=== PATIENT | male | born 1990 | race African-American/Black ===

== ENCOUNTER → 2016-06-29 | Outpatient (CLI) | payer OTHER ==
--- NOTE | 2016-06-29 16:31 | REP ---
Clinical: Arthralgia. Technique: AP, lateral, bilateral oblique and sunrise views of the right knee. Findings: Whitharral view suggests subtle lateral patellofemoral joint space narrowing and subchondral sclerosis. The remainder of the examination appears normal for age. Impression: Cannot exclude mild patellofemoral joint space narrowing. Signed by Carl Houser MD 06/29/2016 04:22 P
== END ==
LOC: M WUC 15:51
PROVIDERS: ATTEND Physician Assistant Medical
DX: M25.561 Pain in right knee (principal)

== ENCOUNTER → 2016-07-15 | Outpatient (CLI) | payer OTHER ==
--- NOTE | 2016-07-15 16:48 | REP ---
MRI RIGHT KNEE: TECHNIQUE: Axial proton density fat saturation, sagittal proton density T2 STIR, water excitation, coronal proton density, proton density fat saturation. The menisci are intact with no evidence of a meniscal tear. The cruciate and collateral ligaments are intact. The extensor mechanism is intact. There is minor global chondromalacia. There is no bone marrow edema or occult fracture. A tiny 6 mm hyperintense lesion on T2, hypointense on T1, is seen in the distal femur centrally, 6 mm in diameter. This probably represents a small enchondroma or other benign lesion. There is a small joint effusion. There is no evidence of a popliteal cyst. IMPRESSION: No meniscal tear. Cruciate and collateral ligaments are intact. Minor global chondromalacia with a small joint effusion. Tiny benign lesion in the distal femur 6 mm in diameter, probably representing an enchondroma. Signed by Zain Gaffney MD 07/15/2016 04:56 P
== END ==
LOC: M RAD 14:42
PROVIDERS: ATTEND Physician Assistant Medical
DX: M25.561 Pain in right knee (principal)

== ENCOUNTER → 2017-05-25 | Outpatient (CLI) | payer OTHER | LOC: M WUC 14:01 | DX: S62.346A Nondisplaced fracture of base of fifth metacarpal bone, right hand, initial encounter for closed fracture (principal); Y92.89 Other specified places as the place of occurrence of the external cause; Y93.89 Activity, other specified; Y99.8 Other external cause status; X58.XXXA Exposure to other specified factors, initial encounter | CPT/HCPCS: 73130 ==